=== PATIENT | male | born 1965 | race African-American/Black ===

== ENCOUNTER 2018-01-08 23:13 | Emergency (ER) | payer BC, OTHER ==
--- NOTE | 2018-01-08 23:28 | PDOC ---
History of Present Illness - General Chief Complaint: Injury Stated Complaint: LT ANKLE PAIN Time Seen by Provider: 01/08/18 23:20 - History of Present Illness Initial Comments: This otherwise healthy 52-year-old man presents with pain and weakness in the left lower leg after playing soccer earlier this evening. Patient states that he was "tackled" by another player while in a soccer game a few hours prior to presentation. Soon after that while running, patient felt a "snap" behind his ankle and has had pain and weakness in the ankle/foot since then. He describes feeling a "soft area" in the tendon just above his heel. No previous history of Achilles tendon pain/weakness/injury. No history of head/neck pain or injury during the game and no other extremity injury noted. Past History - Past Medical History Allergies/Adverse Reactions: Allergies Allergy/AdvReac Type Severity Reaction Status Date / Time No Known Allergies Allergy Unverified 10/24/13 01:40 Home Medications: Ambulatory Orders NK [No Known Home Medication] 01/08/18 - Suicide/Smoking/Psychosocial Hx Smoking History: Unknown if ever smoked Review of Systems - Review of Systems Able to Perform ROS?: Yes Comments:: 12 point review of systems is negative except for what is noted in the history of present illness *Physical Exam - Physical Exam Comments: GENERAL: Adult male, ambulating without putting direct pressure on the left foot HEAD: Normal with no signs of trauma. EXTREMITIES: Left lower extremity-mildly tender defect in the Achilles tendon just proximal to insertion Decreased dorsiflexion/plantar flexion in left foot No significant tenderness/edema of the left gastrocnemius muscle belly Hanson test positive Right lower extremity without significant abnormality Remainder of the extremity exam is normal MUSCULOSKELETAL: Back non-tender to palpation, no CVA tenderness SKIN: Warm, Dry, normal turgor, no rashes or lesions noted. Progress Note - Progress Note Progress Note: This 52-year-old man presents with sudden onset of pain and weakness in the left lower leg while playing soccer earlier. There is defect just above the insertion of the Achilles tendon and dorsiflexion/plantar flexion are decreased. Hanson test is positive. Clinical presentation consistent with complete tear of the Achilles tendon. Call was sent out to [facility] ( reportedly sales communications manager) but no return call was ultimately received. Patient was treated by Xavier wrap of the entire left lower leg distal to the knee. Patient has been advised to elevate and ice the area behind the heel that is tender. Crutches will be used for ambulation. Referral information for Dr. Conley group given to the patient; he should call tomorrow to arrange follow-up BRIAN, preferably tomorrow. *DC/Admit/Observation/Transfer Diagnosis at time of Disposition: Rupture of left Achilles tendon Qualifiers: Encounter type: initial encounter Qualified Code(s): S86.012A - Strain of left Achilles tendon, initial encounter - Discharge Dispostion Disposition: HOME Condition at time of disposition: Stable - Referrals Referrals: Betito Conley MD [Staff Physician] - 24 hours - Patient Instructions Printed Discharge Instructions: Achilles Tendon Rupture Additional Instructions: Keep Xavier wrap in place with ice to back of heel Elevate left lower leg as much as possible Crutches for ambulation Call orthopedic group (Dr. Conley) at 9 AM tomorrow morning to arrange follow-up tomorrow Ibuprofen/naproxen/acetaminophen as needed for pain - Post Discharge Activity
[2018-01-08 23:30] VITALS: BP 121/74; PULSE 72; TEMP 98.1; BMI 26.6
[2018-01-08] MEDS ORDERED: IBUPROFEN 600 MG TABLET (FP) PO ONE ×2 (23:53)
== END 2018-01-09 00:06 | disposition home or self-care (01) ==
LOC: FER 23:13
DX: S86.012A Strain of left Achilles tendon, initial encounter (principal); X58.XXXA Exposure to other specified factors, initial encounter; Y93.66 Activity, soccer; Y92.9 Unspecified place or not applicable
CPT/HCPCS: 99282-25